=== PATIENT | female | born 1995 | race Two or more races ===

== ENCOUNTER 2016-06-23 13:17 | Emergency (ER) | payer SELFPAY ==
[~2016-06-23] VITALS: Ht 152.4 cm; Wt 76.0 kg
[2016-06-23 13:18] VITALS: BP 152/89; PULSE 88; RESP 14; TEMP 98.2; O2SAT 99
--- NOTE | 2016-06-23 13:27 | PD ---
HPI . right lower jaw tooth pain, right ear pain x 1 day and back pain x 1 week Chief Complaint: Oral / Dental Pain or Problem Time Seen by Provider: 13:22 Travel History International Travel<30 days: No Contact w/Intl Traveler<30days: No Traveled to known affect area: No History of Present Illness HPI 21-year-old female with no significant past medical history here with complaints of right lower tooth pain. She tells me that she cracked a tooth and is causing her significant pain. She tells me the pain is severe. She also reports that she has some right ear pain and it all started the same as when the tooth was cracked. She tells me that she has had back pain in her lower back for about a week. She thinks it may be related to her menstrual cycle. She tells me that she's not had a menstrual cycle for the past 6 months , but noticed that she was having what appeared to be red/brown discharge a few days ago. She denies any abdominal or pelvic pain. She denies any unprotected sex. She denies fever or chills. She denies any recent cold symptoms. PFSH Past Medical History Medical History: Denies Significant Hx ?: Not LMP: 6 MONTHS AGO Social History Tobacco Use: No Allergies-Medications (Allergen,Severity, Reaction): Coded Allergies: No Known Allergies (Unverified , 06/23/16) Reported Meds & Prescriptions Reported Meds & Active Scripts Active Ibuprofen 800 Mg Tab 800 Mg PO TID Augmentin (Amoxicillin-Clavulanate) 875-125 mg Tab 875 Mg PO BID not for use in CrCl <30 ml/min. Review of Systems General / Constitutional: No: Fever Eyes: No: Visual changes HENT: Positive: Dental Difficulties, Earache, No: Headaches, Ear Discharge Cardiovascular: No: Chest Pain or Discomfort Respiratory: No: Shortness of Breath Gastrointestinal: No: Abdominal Pain Genitourinary: No: Dysuria Musculoskeletal: Positive: Pain (back) Skin: No Rash Neurologic: No: Weakness Psychiatric: No: Depression Endocrine: No: Polydipsia Hematologic/Lymphatic: No: Easy Bruising Physical Exam Narrative GENERAL: AAO x 3, no acute distress, Well-nourished, well-developed patient. SKIN: Warm and dry. No visible rashes or bruising. HEAD: Normocephalic and atraumatic. EYES: No scleral icterus. No injection or drainage. EOM intact, PERRLA ENT: No nasal drainage noted. Mucous membranes pink. Airway patent. #29 small crack, possible cavity on #30, no posterior pharynx erythema, edema or exudates. TM on right side bulging with purulent matter behind TM. NECK: Supple, trachea midline. No JVD. No lymphadenopathy CARDIOVASCULAR: Regular rate and rhythm without murmurs, gallops, or rubs. RESPIRATORY: Breath sounds equal bilaterally. No accessory muscle use. No rhonchi or rales. GASTROINTESTINAL: Abdomen soft, non-tender, nondistended. EXTREMITIES: No cyanosis or edema. Full range of motion bilateral lower extremities. BACK: Nontender without obvious deformity. No CVA tenderness. Straight leg raise negative. No paraspinal muscle tenderness. No spinous process tenderness. Ambulatory. PSYCH: AAO x 3, normal affect. Data Data Last Documented VS Vital Signs Date Time Temp Pulse Resp B/P Pulse Ox O2 Delivery O2 Flow Rate FiO2 06/23/16 13:18 98.2 88 14 152/89 99 Orders Ed Urine Pregnancytest Poc (06/23/16 13:27) Ibuprofen (Motrin) (06/23/16 13:30) MDM Medical Decision Making Medical Screen Exam Complete: Yes Emergency Medical Condition: Yes Medical Record Reviewed: Yes Differential Diagnosis Dentalgia, right otitis media, menstrual cramps, less likely spinal fracture, less likely dental abscess, Narrative Course 21-year-old female with no significant past medical history here with complaints of right lower tooth pain. She tells me that she cracked a tooth and is causing her significant pain. She tells me the pain is severe. She also reports that she has some right ear pain and it all started the same as when the tooth was cracked. She tells me that she has had back pain in her lower back for about a week. She thinks it may be related to her menstrual cycle. She tells me that she's not had a menstrual cycle for the past 6 months , but noticed that she was having what appeared to be red/brown discharge a few days ago. She denies any abdominal or pelvic pain. She denies any unprotected sex. She denies fever or chills. She denies any recent cold symptoms. Patient seen and examined. She does have a small crack in #29. She also appears to have right otitis media. The combination of these 2 may be causing her discomfort. I will go ahead and treat her with a course of antibiotics for her otitis media. I'll provide her with some anti-inflammatories for her tooth pain. I explained to her that ultimately she will need to see a dentist. In regards to her back pain, I do not see any significant findings on physical exam. She did not demonstrate any discomfort during examination. She can continue to use the anti-inflammatories for this discomfort. I've explained to her that she will need follow-up with a primary care provider to check labs as to why she has not had a menstrual cycle for 6 months. Urine test is negative. Diagnosis Primary Impression: Dentalgia Additional Impressions: ROM (right otitis media) Qualified Code: H66.001 - Acute suppurative otitis media of right ear without spontaneous rupture of tympanic membrane, recurrence not specified Back pain Qualified Code: M54.5 - Acute midline low back pain without sciatica Patient Instructions: General Instructions Additional Instructions: Please return to emergency department if your symptoms return or worsen. Follow up with your primary care provider. Take medications as prescribed. Try alternating heat and ice to your back. Please see a dentist as soon as possible. Med/Other Pt SpecificInfo: Prescription(s) given Scripts Ibuprofen 800 Mg [id number] Mg PO TID #21 TAB Prov:Nina Baum DO 06/23/16 Amoxicillin-Clavulanate (Augmentin)875-125 mg [id number] Mg PO BID #20 TAB not for use in CrCl <30 ml/min. Prov:Nina Baum DO 06/23/16 Disposition: 01 DISCHARGE HOME Condition: Stable Amy Plaza June 23, 2016 13:26
[2016-06-23] MEDS ORDERED: IBUP800T23 PO (13:30)
[2016-06-23] MEDS ORDERED: IBUPROFEN 800 MG TAB PO ONE (13:30)
[2016-06-23] MEDS ORDERED: AUGM875T PO (13:30)
== END 2016-06-23 14:00 | disposition home or self-care (01) ==
LOC: NEPK 13:17
DX: K08.89 Other specified disorders of teeth and supporting structures (principal); H66.91 Otitis media, unspecified, right ear; M54.5 Low back pain
CPT/HCPCS: 84703; 99283